=== PATIENT | female | born 1960 | race Caucasian/White ===

== ENCOUNTER 2018-01-30 00:15 | Emergency (ER) | payer SELFPAY ==
[~2018-01-30] VITALS: Ht 162.6 cm; Wt 97.5 kg
[~2018-01-30 00:15] MED LIST: EFFEXOR XR150 MG; IBUPROFEN 800800 MG PO; MOBIC7.5 MG PO; MULTIVITAMINS; NORCO 5-325 TA1 EACH PO; ULTRAM 50MG TAB50 MG PO; ZPAK PO; [UNRECOGNIZED DRUG - OTHER]
[2018-01-30 01:13] LABS: HEMATOCRIT 42.4 % (37.0-47.0); HEMOGLOBIN 14.3 gm/dL (12.0-15.0); MCH 30.7 pg (26.0-34.0); MCHC 33.8 g/dL (28.0-37.0); MCV 90.7 fL (80.0-100.0); MPV 8.2 fl. (7.2-11.1); NUCLEATED RBCS 0 /100WBC; PLATELET COUNT* 352 thou/uL (150-400); RBC 4.68 mil/uL (4.20-5.00); RDW-CV 13.5 % (10.5-14.5); WBC 17.1 thou/uL (4.0-11.0)
[2018-01-30 01:17] LABS: URINE BILIRUBIN NEGATIVE (Negative); URINE BLOOD NEGATIVE (Negative); URINE CLARITY CLEAR; URINE COLOR YELLOW; URINE GLUCOSE-RANDOM NEGATIVE (Negative); URINE KETONES TRACE (Negative); URINE LEUKOCYTES-REFLEX NEGATIVE (Negative); URINE NITRITE-REFLEX NEGATIVE (Negative); URINE PROTEIN 1+ (Negative); URINE SPECIFIC GRAVITY 1.015 (1.005-1.030); URINE UROBILINOGEN 0.2 E.U./dl (0.2-1.0)
[2018-01-30 01:31] LABS: ANION GAP 13 mmol/L (7-16); BUN 22 mg/dL (7-18); CALCIUM 9.8 mg/dL (8.5-10.1); CHLORIDE 103 mmol/L (98-107); CO2 25 mmol/L (21-32); GLUCOSE 160 mg/dL (70-99); POTASSIUM 3.6 mmol/L (3.5-5.1); SODIUM 141 mmol/L (136-145)
[2018-01-30 01:35] LABS: ALBUMIN 4.4 g/dL (3.4-5.0); ALKALINE PHOSPHATASE 161 U/L (46-116); LIPASE 155 U/L (73-393); SGOT 26 U/L (15-37); SGPT 29 U/L (30-65); TOTAL BILIRUBIN 0.5 mg/dL (<0.1-1.0); TOTAL PROTEIN 8.5 g/dL (6.4-8.2); TROPONIN-I LEVEL <0.06 ng/mL (<0.06)
[2018-01-30 02:44] LABS: ABSOLUTE LYMPHOCYTES 1.7 thou/uL (0.8-5.3); ABSOLUTE MONOCYTES 0.9 thou/uL (0.0-1.2); ABSOLUTE NEUTROPHILS 14.5 thou/uL (1.6-8.1)
[2018-01-30 02:45] LABS: GIANT PLATELETS OCCASIONAL; PLATELET ESTIMATE ADEQUATE
[2018-01-30 04:30] VITALS: BP 139/76
--- NOTE | 2018-01-30 10:14 | EKG ---
[place] [address] ELECTROCARDIOGRAM REPORT Name: ROSANNA MONTGOMERY Room: [facility]#: [id number] Admission: 01/30/18 Attend Phys: Discharge: 01/30/18 Date of : 56 Report #: [id number] THIS REPORT FOR: //name// [facility] ED Test Date: 2018-01-30 Test Time: 01:14:53 Pat Name: ROSANNA MONTGOMERY Department: Room: Gender: F Private Banker: DANISHA : 1960 Requested By: London Gonzales Order Number: [id number] MD: Nikunj Ellis Measurements Intervals [place] Rate: 67 P: 72 [place]: 176 QRS: 30 QRSD: 86 T: 120 QT: 424 QTc: 448 Interpretive Statements Sinus rhythm Consider left atrial enlargement Borderline repolarization abnormality Compared to ECG 02/19/2012 22:40:45 Atrial premature complex(es) no longer present Electronically Signed On 01-30-2018 10:13:47 CDT by Nikunj Ellis [email or web address] <ELECTRONICALLY SIGNED> By: Nikunj Ellis MD, [facility] 01/30/18 1013 0114 011 Nikunj Ellis MD, FACC /EPI
== END 2018-01-30 04:39 | disposition short-term general hospital (02) ==
LOC: M.ERS 00:15
PROVIDERS: Emergency Medicine
DX: K43.6 Other and unspecified ventral hernia with obstruction, without gangrene (principal); G47.30 Sleep apnea, unspecified; I10 Essential (primary) hypertension; Z90.711 Acquired absence of uterus with remaining cervical stump; Z88.2 Allergy status to sulfonamides

== ENCOUNTER → 2018-08-28 | Outpatient (CLI) | payer OTHER ==
[2018-08-28 14:46] LABS: ABSOLUTE BASOPHILS 0.1 thou/uL (0.0-0.2); ABSOLUTE EOSINOPHILS 0.3 thou/uL (0.0-0.7); ABSOLUTE LYMPHOCYTES 2.3 thou/uL (0.8-5.3); ABSOLUTE MONOCYTES 0.8 thou/uL (0.0-1.2); ABSOLUTE NEUTROPHILS 5.1 thou/uL (1.6-8.1); EOSINOPHILS 3.1 %; HEMATOCRIT 33.9 % (37.0-47.0); HEMOGLOBIN 10.8 gm/dL (12.0-15.0); LYMPHOCYTES 27.1 %; MCH 25.7 pg (26.0-34.0); MCHC 31.9 g/dL (28.0-37.0); MCV 80.8 fL (80.0-100.0); MONOCYTES 9.1 %; MPV 7.6 fl. (7.2-11.1); NUCLEATED RBCS 0 /100WBC; PLATELET COUNT* 363 thou/uL (150-400); POLYS 59.7 %; RDW-CV 14.9 % (10.5-14.5); WBC 8.6 thou/uL (4.0-11.0)
[2018-08-28 14:58] LABS: ALBUMIN 3.8 g/dL (3.4-5.0); CALCIUM 8.9 mg/dL (8.5-10.1); POTASSIUM 3.4 mmol/L (3.5-5.1); TOTAL BILIRUBIN 0.3 mg/dL (<0.1-1.0); TOTAL PROTEIN 7.7 g/dL (6.4-8.2)
== END ==
LOC: M.LAB 14:17
PROVIDERS: Specialist
DX: M79.10 Myalgia, unspecified site (principal)

== ENCOUNTER → 2018-11-06 | Outpatient (CLI) | payer OTHER ==
[2018-11-06 15:54] LABS: % SATURATION 31 % (20-39); IRON 134 ug/dL (50-175)
== END ==
LOC: M.LAB 14:29
PROVIDERS: Specialist
DX: D64.9 Anemia, unspecified (principal)

== ENCOUNTER → 2018-11-22 | Outpatient (CLI) | payer OTHER | LOC: M.RAD 14:42 | DX: M47.895 Other spondylosis, thoracolumbar region (principal); M43.16 Spondylolisthesis, lumbar region; M41.84 Other forms of scoliosis, thoracic region; G89.29 Other chronic pain ==

== ENCOUNTER → 2018-12-11 | Outpatient (CLI) | payer OTHER | LOC: M.RAD 15:13 | DX: M17.12 Unilateral primary osteoarthritis, left knee (principal); G89.29 Other chronic pain ==

== ENCOUNTER → 2018-12-17 | Outpatient (CLI) | payer OTHER | LOC: M.MRI 17:03 | DX: S83.412A Sprain of medial collateral ligament of left knee, initial encounter (principal); S83.242A Other tear of medial meniscus, current injury, left knee, initial encounter; F41.9 Anxiety disorder, unspecified; E78.5 Hyperlipidemia, unspecified; I10 Essential (primary) hypertension; E66.9 Obesity, unspecified; Z90.710 Acquired absence of both cervix and uterus; Z82.49 Family history of ischemic heart disease and other diseases of the circulatory system; Z83.3 Family history of diabetes mellitus; Z87.891 Personal history of nicotine dependence; Z88.1 Allergy status to other antibiotic agents; Z88.2 Allergy status to sulfonamides; X58.XXXA Exposure to other specified factors, initial encounter; Y93.89 Activity, other specified; Y92.89 Other specified places as the place of occurrence of the external cause; Y99.8 Other external cause status ==

== ENCOUNTER → 2019-02-15 | Outpatient (CLI) | payer OTHER | LOC: M.MRI 16:16 | DX: M75.101 Unspecified rotator cuff tear or rupture of right shoulder, not specified as traumatic (principal); F41.9 Anxiety disorder, unspecified; F32.9 Major depressive disorder, single episode, unspecified; Z82.49 Family history of ischemic heart disease and other diseases of the circulatory system; E78.5 Hyperlipidemia, unspecified; I10 Essential (primary) hypertension; E66.9 Obesity, unspecified; Z88.1 Allergy status to other antibiotic agents; Z88.2 Allergy status to sulfonamides; Z83.3 Family history of diabetes mellitus; Z87.891 Personal history of nicotine dependence ==

== ENCOUNTER → 2019-05-07 | Outpatient (CLI) | payer OTHER | LOC: M.RAD 11:58 | DX: R07.89 Other chest pain (principal); R06.02 Shortness of breath; R05 Cough ==

== ENCOUNTER 2019-10-04 11:25 | Emergency (ER) | payer OTHER ==
[~2019-10-04] VITALS: Ht 167.6 cm; Wt 95.3 kg
[2019-10-04] MEDS ORDERED: VISTARIL50 MG PO (11:34)
[2019-10-04] MEDS ORDERED: XYZAL5 MG PO (11:34)
[2019-10-04] MEDS ORDERED: LEXAPRO20 MG PO (11:34)
[2019-10-04] MEDS ORDERED: ZESTRIL10 MG PO (11:34)
[2019-10-04] MEDS ORDERED: ONDANSETRON ODT4 MG PO (11:35)
[2019-10-04] MEDS ORDERED: SINGULAIR 10 MG10 MG PO (11:35)
[2019-10-04] MEDS ORDERED: TRAZODONE HCL100 MG PO (11:35)
[2019-10-04] MEDS ORDERED: NASONEX17 GM NASAL (11:35)
[2019-10-04 12:21] LABS: ABSOLUTE BASOPHILS 0.1 thou/uL (0.0-0.2); ABSOLUTE EOSINOPHILS 0.1 thou/uL (0.0-0.7); ABSOLUTE LYMPHOCYTES 2.5 thou/uL (0.8-5.3); ABSOLUTE MONOCYTES 0.9 thou/uL (0.0-1.2); ABSOLUTE NEUTROPHILS 6.1 thou/uL (1.6-8.1); BASOPHILS 0.9 %; EOSINOPHILS 1.2 %; HEMATOCRIT 41.9 % (37.0-47.0); HEMOGLOBIN 14.2 gm/dL (12.0-15.0); LYMPHOCYTES 25.6 %; MCH 30.7 pg (26.0-34.0); MCHC 33.8 g/dL (28.0-37.0); MCV 90.7 fL (80.0-100.0); MPV 7.5 fl. (7.2-11.1); NUCLEATED RBCS 0 /100WBC; PLATELET COUNT* 357 thou/uL (150-400); POLYS 63.3 %; RBC 4.63 mil/uL (4.20-5.00); RDW-CV 12.9 % (10.5-14.5); WBC 9.6 thou/uL (4.0-11.0)
[2019-10-04 12:28] LABS: CALCIUM 9.9 mg/dL (8.5-10.1); POTASSIUM 3.7 mmol/L (3.5-5.1)
[2019-10-04 12:32] LABS: ALBUMIN 4.2 g/dL (3.4-5.0); TOTAL BILIRUBIN 0.7 mg/dL (<0.1-1.0)
[2019-10-04 12:36] LABS: INFLUENZA A ANTIGEN Negative (Negative); INFLUENZA B ANTIGEN Negative (Negative)
[2019-10-04] MEDS ORDERED: REGLAN 10 MG TA10 MG PO ×2 (14:13→14:14)
[2019-10-04] MEDS ORDERED: BENTYL 20 MG TA20 M1 PO ×2 (14:13→14:14)
[2019-10-04 14:44] LABS: URINE BILIRUBIN NEGATIVE (Negative); URINE BLOOD NEGATIVE (Negative); URINE CLARITY CLEAR; URINE COLOR YELLOW; URINE GLUCOSE-RANDOM NEGATIVE (Negative); URINE KETONES NEGATIVE (Negative); URINE LEUKOCYTES-REFLEX NEGATIVE (Negative); URINE NITRITE-REFLEX NEGATIVE (Negative); URINE PROTEIN TRACE (Negative); URINE SPECIFIC GRAVITY <= 1.005 (1.005-1.030); URINE UROBILINOGEN 0.2 E.U./dl (0.2-1.0)
[2019-10-04 14:50] VITALS: BP 140/80
--- NOTE | 2019-10-04 15:51 | EKG ---
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
== END 2019-10-04 14:51 | disposition home or self-care (01) ==
LOC: M.ERS 11:25
PROVIDERS: Nurse Practitioner Family
DX: K52.9 Noninfective gastroenteritis and colitis, unspecified (principal); G47.30 Sleep apnea, unspecified; I10 Essential (primary) hypertension; Z88.1 Allergy status to other antibiotic agents; Z88.2 Allergy status to sulfonamides; Z88.8 Allergy status to other drugs, medicaments and biological substances; Z90.711 Acquired absence of uterus with remaining cervical stump

== ENCOUNTER 2019-11-27 10:59 | Observation (INO) | payer OTHER ==
[~2019-11-27] VITALS: Ht 167.6 cm; Wt 101.6 kg
--- NOTE | ~2019-11-27 | EKG ---
[place] [address] ELECTROCARDIOGRAM REPORT Name: ROSANNA MONTGOMERY Room: [place] [address] ADM IN .R.#: [id number] Admission: 11/27/19 Attend Phys: Eunice joseph Sa Discharge: Date of : 56 Date of Service: 11/27/19 1351 Report #: [id number] THIS REPORT FOR: cc: Oliverio Gutierrez. Oliverio Holden. Ericka Weber MD ~ THIS REPORT FOR: //name// [facility] ED Test Date: 2019-11-27 Test Time: 13:51:31 Pat Name: ROSANNA MONTGOMERY Department: Room: [facility] Gender: F Inspector Line: BLANCO : 1960 Requested By: Loki Harmon Order Number: [id number] MD: Measurements Intervals [place] Rate: 72 P: 66 [place]: 173 QRS: 25 QRSD: 85 T: 90 QT: 406 QTc: 445 Interpretive Statements Sinus rhythm Borderline repolarization abnormality Compared to ECG 10/04/2019 12:21:41 Possible ischemia no longer present [email or web address] By: [id number] 135 Epiphany Epiphany, /ANA MARÍA
[~2019-11-27 10:59] MED LIST changes: +BENTYL 20 MG TA20 M1 PO; +LEXAPRO20 MG PO; +NASONEX17 GM NASAL; +ONDANSETRON ODT4 MG PO; +REGLAN 10 MG TA10 MG PO; +SINGULAIR 10 MG10 MG PO; +TRAZODONE HCL100 MG PO; +VISTARIL50 MG PO; +XYZAL5 MG PO; +ZESTRIL10 MG PO
[2019-11-27 11:05] VITALS: BP 149/72
[2019-11-27 11:41] LABS: INFLUENZA A ANTIGEN Negative (Negative); INFLUENZA B ANTIGEN Negative (Negative)
[2019-11-27 11:52] LABS: ABSOLUTE BASOPHILS 0.1 thou/uL (0.0-0.2); ABSOLUTE EOSINOPHILS 0.1 thou/uL (0.0-0.7); ABSOLUTE LYMPHOCYTES 2.4 thou/uL (0.8-5.3); ABSOLUTE MONOCYTES 0.7 thou/uL (0.0-1.2); ABSOLUTE NEUTROPHILS 9.2 thou/uL (1.6-8.1); BASOPHILS 0.5 %; EOSINOPHILS 0.5 %; HEMATOCRIT 39.5 % (37.0-47.0); HEMOGLOBIN 13.6 gm/dL (12.0-15.0); MCH 31.3 pg (26.0-34.0); MCHC 34.3 g/dL (28.0-37.0); MONOCYTES 5.7 %; NUCLEATED RBCS 0 /100WBC; PLATELET COUNT* 407 thou/uL (150-400); POLYS 74.3 %; RBC 4.34 mil/uL (4.20-5.00); RDW-CV 13.5 % (10.5-14.5); WBC 12.4 thou/uL (4.0-11.0)
[2019-11-27 12:00] LABS: CALCIUM 8.9 mg/dL (8.5-10.1); CREATININE 0.9 mg/dL (0.6-1.3); POTASSIUM 3.2 mmol/L (3.5-5.1)
[2019-11-27 12:05] LABS: ALBUMIN 3.8 g/dL (3.4-5.0); TOTAL BILIRUBIN 0.6 mg/dL (<0.1-1.0); TOTAL PROTEIN 7.3 g/dL (6.4-8.2)
[2019-11-27 14:57] VITALS: BP 163/76
[2019-11-27 16:00] VITALS: BP 135/71
[2019-11-27 16:55] VITALS: BP 150/80
[2019-11-27] MEDS ORDERED: NEURONTIN 300M300 M2 PO (19:24)
[2019-11-27] MEDS ORDERED: HYDROXYZINE PAM50 MG PO (19:27)
[2019-11-27] MEDS ORDERED: KEFLEX500 M2 PO (19:33)
[2019-11-27] MEDS ORDERED: PREDNISONE 10 M10 MG PO (19:35)
[2019-11-27 21:00] VITALS: BP 168/61
[2019-11-28 03:48] LABS: ABSOLUTE LYMPHOCYTES 1.6 thou/uL (0.8-5.3); ABSOLUTE MONOCYTES 1.1 thou/uL (0.0-1.2); ABSOLUTE NEUTROPHILS 8.9 thou/uL (1.6-8.1); BASOPHILS 0.1 %; HEMATOCRIT 37.8 % (37.0-47.0); HEMOGLOBIN 12.4 gm/dL (12.0-15.0); MCH 30.9 pg (26.0-34.0); MCV 93.6 fL (80.0-100.0); MONOCYTES 9.5 %; MPV 7.4 fl. (7.2-11.1); NUCLEATED RBCS 0 /100WBC; PLATELET COUNT* 405 thou/uL (150-400); POLYS 76.4 %; RBC 4.03 mil/uL (4.20-5.00); RDW-CV 13.9 % (10.5-14.5); WBC 11.6 thou/uL (4.0-11.0)
[2019-11-28 04:03] LABS: CALCIUM 8.4 mg/dL (8.5-10.1); CREATININE 0.8 mg/dL (0.6-1.3); POTASSIUM 3.8 mmol/L (3.5-5.1)
[2019-11-28 07:35] VITALS: BP 167/89
[2019-11-28] MEDS ORDERED: CEFDINIR300 MG PO (10:51)
[2019-11-28] MEDS ORDERED: BUTALB-APAP-CA1 EACH PO (10:51)
[2019-11-28] MEDS ORDERED: ALLERGY RELIEF4 MG PO (10:51)
[2019-11-28] MEDS ORDERED: ATIVAN0.5 M1 PO (10:55)
[2019-11-28 12:03] VITALS: BP 167/89
== END 2019-11-28 13:55 | disposition home or self-care (01) ==
LOC: M.ERS 10:59 → M.3W 12:32 → M.TBA-ER 12:32 → M.3W 12:32
PROVIDERS: Family Medicine; ADMIT Family Medicine
DX: R53.1 Weakness (principal); F41.8 Other specified anxiety disorders; B34.9 Viral infection, unspecified; H66.91 Otitis media, unspecified, right ear; E86.0 Dehydration; I10 Essential (primary) hypertension; J30.9 Allergic rhinitis, unspecified

== ENCOUNTER 2019-12-10 11:48 | Emergency (ER) | payer OTHER ==
[~2019-12-10] VITALS: Ht 167.6 cm; Wt 90.7 kg
[~2019-12-10 11:48] MED LIST changes: +ALLERGY RELIEF4 MG PO; +ATIVAN0.5 M1 PO; +BUTALB-APAP-CA1 EACH PO; +CEFDINIR300 MG PO; +HYDROXYZINE PAM50 MG PO; +KEFLEX500 M2 PO; +NEURONTIN 300M300 M2 PO; +PREDNISONE 10 M10 MG PO
[2019-12-10 13:01] LABS: ABSOLUTE BASOPHILS 0.1 thou/uL (0.0-0.2); ABSOLUTE EOSINOPHILS 0.2 thou/uL (0.0-0.7); ABSOLUTE LYMPHOCYTES 1.8 thou/uL (0.8-5.3); ABSOLUTE MONOCYTES 0.9 thou/uL (0.0-1.2); ABSOLUTE NEUTROPHILS 7.2 thou/uL (1.6-8.1); BASOPHILS 0.9 %; HEMATOCRIT 39.2 % (37.0-47.0); HEMOGLOBIN 13.5 gm/dL (12.0-15.0); LYMPHOCYTES 17.2 %; MCH 31.7 pg (26.0-34.0); MCHC 34.5 g/dL (28.0-37.0); MONOCYTES 8.8 %; MPV 7.5 fl. (7.2-11.1); NUCLEATED RBCS 0 /100WBC; PLATELET COUNT* 332 thou/uL (150-400); POLYS 71.1 %; RBC 4.26 mil/uL (4.20-5.00); WBC 10.2 thou/uL (4.0-11.0)
[2019-12-10 13:10] LABS: CALCIUM 9.2 mg/dL (8.5-10.1); CREATININE 0.8 mg/dL (0.6-1.3)
[2019-12-10 13:14] LABS: ALBUMIN 3.8 g/dL (3.4-5.0); TOTAL BILIRUBIN 0.4 mg/dL (<0.1-1.0); TOTAL PROTEIN 7.8 g/dL (6.4-8.2)
[2019-12-10 13:28] LABS: URINE BILIRUBIN NEGATIVE (Negative); URINE BLOOD NEGATIVE (Negative); URINE CLARITY CLEAR; URINE COLOR YELLOW; URINE GLUCOSE-RANDOM NEGATIVE (Negative); URINE KETONES NEGATIVE (Negative); URINE LEUKOCYTES-REFLEX NEGATIVE (Negative); URINE NITRITE-REFLEX NEGATIVE (Negative); URINE PROTEIN NEGATIVE (Negative); URINE UROBILINOGEN 0.2 E.U./dl (0.2-1.0)
[2019-12-10 13:49] LABS: ACETAMINOPHEN 2 ug/mL (10-30); SALICYLATE < 2.8 mg/dL (2.8-20.0)
[2019-12-10 15:57] VITALS: BP 165/89
== END 2019-12-10 15:58 | disposition home or self-care (01) ==
LOC: M.ERS 11:48
PROVIDERS: Personal Emergency Response Attendant
DX: E86.0 Dehydration (principal); R53.83 Other fatigue; I10 Essential (primary) hypertension; G47.30 Sleep apnea, unspecified; Z90.711 Acquired absence of uterus with remaining cervical stump; Z98.890 Other specified postprocedural states; Z88.1 Allergy status to other antibiotic agents; Z88.2 Allergy status to sulfonamides

== ENCOUNTER → 2019-12-17 | Outpatient (CLI) | payer OTHER ==
[2019-12-17 17:30] LABS: ABSOLUTE LYMPHOCYTES 1.7 thou/uL (0.8-5.3); ABSOLUTE MONOCYTES 0.6 thou/uL (0.0-1.2); ABSOLUTE NEUTROPHILS 7.8 thou/uL (1.6-8.1); BASOPHILS 0.4 %; HEMATOCRIT 39.3 % (37.0-47.0); HEMOGLOBIN 13.6 gm/dL (12.0-15.0); LYMPHOCYTES 16.7 %; MCH 31.6 pg (26.0-34.0); MCHC 34.5 g/dL (28.0-37.0); MCV 91.7 fL (80.0-100.0); MONOCYTES 5.5 %; MPV 7.1 fl. (7.2-11.1); NUCLEATED RBCS 0 /100WBC; PLATELET COUNT* 463 thou/uL (150-400); POLYS 77.4 %; RBC 4.29 mil/uL (4.20-5.00); RDW-CV 14.1 % (10.5-14.5); WBC 10.1 thou/uL (4.0-11.0)
[2019-12-17 17:45] LABS: ALKALINE PHOSPHATASE 129 U/L (46-116); ANION GAP 10 mmol/L (7-16); CALCIUM 9.4 mg/dL (8.5-10.1); CHLORIDE 102 mmol/L (98-107); CHOLESTEROL 286 mg/dL (<200); CO2 27 mmol/L (21-32); CREATININE 0.7 mg/dL (0.6-1.3); GLUCOSE 90 mg/dL (70-99); HDL CHOLESTEROL 23 mg/dL (>40); LDL CHOLESTEROL 224 mg/dL (<100); POTASSIUM 4.3 mmol/L (3.5-5.1); SGOT 17 U/L (15-37); SGPT 28 U/L (30-65); SODIUM 139 mmol/L (136-145); TC:HDL 12.4 Ratio (Not establshd); TOTAL BILIRUBIN 0.3 mg/dL (<0.1-1.0); TRIGLYCERIDE 199 mg/dL (<150); VLDL 40 mg/dL (<40)
[2019-12-17 18:05] LABS: SERUM ASSESSMENT Clear
[2019-12-17 18:08] LABS: BUN 18 mg/dL (7-18)
[2019-12-19 16:09] LABS: EBV VCA IgM <36.0 U/mL (0.0-35.9)
== END ==
LOC: M.LAB 16:54
PROVIDERS: Nurse Practitioner Family
DX: R50.9 Fever, unspecified (principal); R52 Pain, unspecified

== ENCOUNTER → 2020-01-16 | Outpatient (CLI) | payer OTHER ==
[~2020-01-16] MED LIST changes: +BUTRANS1 EAC4 INTRADERM; +ESCITALOPRAM; +LIPITOR10 MG PO; +TRAMADOL 50 MG50 MG PO; +VOLTAREN GEL 1100 G1 TOP
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
== END ==
LOC: M.PC 02:45
DX: M25.562 Pain in left knee (principal); E66.9 Obesity, unspecified; I10 Essential (primary) hypertension; E78.5 Hyperlipidemia, unspecified; F41.8 Other specified anxiety disorders; Z88.2 Allergy status to sulfonamides; Z79.84 Long term (current) use of oral hypoglycemic drugs; Z88.1 Allergy status to other antibiotic agents; Z79.899 Other long term (current) drug therapy

== ENCOUNTER → 2020-03-10 | Outpatient (CLI) | payer OTHER ==
[~2020-03-10] MED LIST changes: +HYDROCODON-ACE1 EAC7 PO; +MOBIC15 MG PO
--- NOTE | 2020-03-19 14:15 | PAINCON ---
[address] [address] PAIN MANAGEMENT CONSULTATION Name: ROSANNA MONTGOMERY Room: [facility]#: [id number] Admission: 03/10/20 Attend Phys: Eagle Collins MD Discharge: Date of : 56 Report #: [id number] THIS REPORT FOR: //name// cc: Gena Castillo NP, Elizabeth NP ~ THIS REPORT FOR: //name// CC: Gena Collins DATE OF SERVICE: 03/10/2020 CHIEF COMPLAINT: Knee pain and all over muscle pain. HISTORY: The patient is a 59-year-old female who has been seen in the Pain Clinic. She has chronic pain. She works at [employer]. She is contemplating a left knee replacement. She finds that her muscles are very painful. After work, she has difficulty lying down. Sleep is problematic. She uses a cane while at home. She rates her pain as an 8/10. The left knee continues to be problematic because of scww-yf-srao involvement. She has been treated for mononucleosis. She notes that the pain is more problematic with activity, walking, sitting, standing, climbing stairs, lifting as well as with bending. Pain improves with rest. ALLERGIES: SULFA, AMOXICILLIN. CURRENT MEDICATIONS: Escitalopr?m 20 mg, tramadol 5 mg b.i.d., gabapentin 600 mg 2 tablets b.i.d., trazodone 100 mg at bedtime, Montelukast 10 mg, hydroxyzine, lisinopril 10 mg, and Lipitor 10 mg. PAIN CLINIC ASSESSMENT/PQRS: 1. The patient does have some osteoarthritic changes involving her right shoulder. She has esxv-ng-ddku pain. It involves her left knee. The patient has had right rotator cuff pain. She is not being treated for rheumatoid arthritis. 2. Height 5 feet 6 inches, weight 208 pounds, BMI 33.4. 3. Vital signs: Blood pressure 151/92, heart rate 85, respiratory rate 16, room air saturation is 94%, temperature 98.5. 4. Pain intensity, 10. 5. Fall risk. The patient has not fallen in the last 3 months. 6. Blood thinner. The patient is not on a blood thinning medication. 7. Hypertension. The patient is being treated for hypertension. 8. Opioids greater than 6 weeks. The patient receives medication from the Pain Clinic. 9. Risk assessment tool, [place] [address] PAIN MANAGEMENT CONSULTATION Name: ROSANNA MONTGOMERY Room: [facility]#: [id number] Admission: 03/10/20 Attend Phys: Eagle Collins MD Discharge: Date of : 56 Report #: [id number] 10. Functional assessment tool, reviewed. 11. Recreational drug use. The patient denies. 12. Tobacco: The patient denies. The patient has not smoked in the last 6 years. 13. Alcohol. The patient denies use of alcoholic beverages. PHYSICAL EXAMINATION: GENERAL: The patient is a well-developed, well-nourished white female. Appears her stated age. She is alert and oriented x 3. Her affect is appropriate. Speech is fluent. HEENT: Normocephalic, atraumatic. Extraocular eye muscles intact. Sclerae nonicteric. Mucous membranes are moist. NECK: The patient is without significant JVD. The patient complains of some pain and discomfort in her right shoulder. Has some limitation in movement of her right shoulder and arm. HEART: Regular rate. ABDOMEN: Nontender. MUSCULOSKELETAL: Without significant scoliosis, kyphosis or lordosis. The patient has discomfort in the low back area with complaints of pain in her knee. The patient has some discomfort in her foot involving her toes. IMPRESSION: Chronic pain as a result of new onset mononucleosis. The patient has noted some lethargy, myalgias and has had discomfort for a number of months. The patient is unable to take nonsteroidal anti-inflammatory medications. RECOMMENDATIONS: We discussed treatment option with the patient. Risks and benefits of opioid medications were again discussed. The patient is aware that these medications can become less effective as time goes on. She will continue with the Voltaren gel, which she applies 4 times daily to her knee area. She will continue with gabapentin b.i.d. to t.i.d. She will continue with meloxicam and notes its effect on her GI tract. The patient feels that her pain is improved, 50-65% with her current medications. A script for her medications have been sent to her pharmacy. These include medications of meloxicam, hydrocodone, Voltaren gel. She will call us if she has any concerns. We would like to thank you for letting us participate in her care. We hope she continues to improve. <ELECTRONICALLY SIGNED> By: Eagle oCllins MD 03/19/20 1415 1606 0118N. Olegario Collins MD /nt
== END ==
LOC: M.PC 05:00
DX: M25.562 Pain in left knee (principal); M79.18 Myalgia, other site; I10 Essential (primary) hypertension; F10.10 Alcohol abuse, uncomplicated; F11.20 Opioid dependence, uncomplicated; Z87.891 Personal history of nicotine dependence; Z88.2 Allergy status to sulfonamides; Z88.8 Allergy status to other drugs, medicaments and biological substances; Z96.652 Presence of left artificial knee joint; Z79.899 Other long term (current) drug therapy

== ENCOUNTER → 2020-04-07 | Outpatient (CLI) | payer OTHER ==
--- NOTE | 2020-04-08 08:41 | PAINCON ---
[address] [address] PAIN MANAGEMENT CONSULTATION Name: PHU MONTGOMERYKylah Gonzales Room: [facility]#: [id number] Admission: 04/07/20 Attend Phys: Eagle Collins MD Discharge: Date of : 56 Report #: [id number] THIS REPORT FOR: //name// cc: Gena Castillo NP, Elizabeth NP ~ THIS REPORT FOR: //name// CC: Gena Collins DATE OF SERVICE: 04/07/2020 CHIEF COMPLAINT: Continued left knee pain and muscle pain with arthritis. HISTORY OF PRESENT ILLNESS: The patient is a 59-year-old female who has been followed in the pain clinic because of chronic pain. She worked at [employer]. She continues to have pain and is contemplating on the left knee replacement. Feels that her muscles are very sore and painful. She feels that she may have had COVID-19. She states that she had quite a number of the symptoms that were reported on TV. Notes that her pain is a 7/10. She has returned today for renewal of her medications. Walking, sitting, standing, climbing stairs, lifting and bending are problematic. The patient feels that her pain is about 50% improved with her current medical regimen. ALLERGIES: SULFA, AMOXICILLIN. CURRENT MEDICATIONS: Escitalopram 20 mg, tramadol 5 mg b.i.d., gabapentin 600 mg 2 tablets b.i.d., trazodone 100 mg at bedtime, montelukast 10 mg, hydroxyzine, lisinopril 10 mg, Lipitor 10 mg, Voltaren gel to the affected surface, hydrocodone 5/325 1 p.o. b.i.d. to t.i.d., Zoloft, meloxicam. PAIN CLINIC ASSESSMENT AND PQRS: 1. The patient has some osteoarthritic changes involving her right shoulder. Has xuej-lu-egsc pain involving her left knee. The patient also has a right rotator cuff pain. She is not being treated for rheumatoid arthritis. 2. Height 5 feet 6 inches, weight 203 pounds, BMI is 32. 3. Vital signs: Blood pressure 141/80, heart rate 86, respiratory rate 16, room air saturation 93%, temperature 97.9. 4. Pain intensity, 7/10. 5. Fall risk. The patient has not fallen in the last 3 months. 6. Blood thinner. The patient is not on a blood thinning medication. 7. Hypertension. The patient is being treated for hypertension. 8. Opioids greater than 6 weeks. The patient received medication from [place] [address] PAIN MANAGEMENT CONSULTATION Name: ROSANNA MONTGOMERY Room: [facility]#: [id number] Admission: 04/07/20 Attend Phys: Eagle Collins MD Discharge: Date of : 56 Report #: [id number] 9. Risk assessment tool, low for opioid use. 10. Functional assessment tool, reviewed. 11. Recreational drug use. The patient denies. 12. Tobacco. The patient denies. She has not smoked in the last 6 years. 13. Alcohol. The patient denies use of alcoholic beverages. PHYSICAL EXAMINATION: GENERAL: The patient is a well-developed, well-nourished, white female. Appears her stated age. She is alert and oriented x 3. Her affect is appropriate. Speech is fluent. HEENT: Normocephalic, atraumatic. Extraocular eye muscles intact. Sclerae nonicteric. Mucous membranes are moist. NECK: Without adenopathy or JVD. The patient complains of some pain and discomfort in her right shoulder. He has some limitation of movement in her right shoulder and arm. HEART: Regular. ABDOMEN: Nontender. MUSCULOSKELETAL: The patient without significant scoliosis, kyphosis or lordosis. The patient does have some pain in the lower portion of her back and pain in her knee. Has some pain involving her toes. IMPRESSION: 1. Chronic pain with new onset of mononucleosis for the second time. 2. History of lethargy and myalgias for a number of months. 3. The patient feels that she has had COVID-19, has been off work for 4 months. RECOMMENDATIONS: We discussed treatment options. At this juncture, we will continue with her medications. She will continue with hydrocodone 5/325 1 p.o. b.i.d. to t.i.d., a total of 75 tablets have been provided. The patient will call us if she has any concerns. Hopefully, she will continue to improve. She did feel that she had COVID symptomatology. She has not been tested for the antibody. She feels that she has had that problem. States it was worse sickness that she has had in her life at this juncture. We would like to thank you for letting us participate in her care. We hope she continues to improve. <ELECTRONICALLY SIGNED> By: Eagle Collins MD 04/08/20 0841 1547 2350N. Olegario Collins MD /PMT
== END ==
LOC: M.PC 03:54
PROVIDERS: ATTEND Anesthesiology Pain Medicine
DX: M25.561 Pain in right knee (principal); M19.90 Unspecified osteoarthritis, unspecified site; G89.29 Other chronic pain; Z79.899 Other long term (current) drug therapy

== ENCOUNTER → 2020-05-07 | Outpatient (CLI) | payer OTHER ==
--- NOTE | 2020-05-15 09:02 | PAINCON ---
[address] [address] PAIN MANAGEMENT CONSULTATION Name: ULISESROSANNA R Room: [facility].#: [id number] Admission: 05/07/20 Attend Phys: Eagle Collins MD Discharge: Date of : 56 Report #: [id number] THIS REPORT FOR: //name// cc: Gena Castillo NP, Elizabeth NP ~ THIS REPORT FOR: //name// CC: Dr. Gena Collins DATE OF SERVICE: 05/07/2020 CHIEF COMPLAINT: Left knee and muscle pain. HISTORY: The patient is a 59-year-old female who has been followed in the pain clinic because of chronic pain. She worked at [employer] She has pain involving her left knee. She is contemplating knee replacement. She has been having a lot of pain due to being busy at work. She has been having flare-ups in her discomfort. She rates her pain as a 7-8/10. She has continued to use hydrocodone 5 mg as tolerated. She also is using meloxicam, tramadol, and Voltaren gel. With all these medications she feels her pain is about 50% better. It is exacerbated with walking, sitting, standing, climbing stairs, lifting, and bending. She has returned today for renewal of her medications. ALLERGIES: SULFA AND AMOXICILLIN. CURRENT MEDICATIONS: Escitalopram 20 mg, tramadol 50 b.i.d., gabapentin 600 mg 2 tablets b.i.d., trazodone 100 mg at bedtime, montelukast 10 mg, hydroxyzine, lisinopril 10 mg, Lipitor 10 mg, Voltaren gel to the affected area 4 times daily, hydrocodone 5/325 one p.o. b.i.d. to t.i.d., Zoloft, and meloxicam. PAIN CLINIC ASSESSMENT/PQRS: 1. The patient has some osteoarthritic changes involving her right shoulder. She has yrvz-ge-sjxs pain involving her left knee. She also has some right rotator cuff pain. She is not being treated for rheumatoid arthritis. 2. Height 5 feet 6 inches, weight 206 pounds, BMI is 33. 3. Vital signs: Blood pressure is 143/90, heart rate 83, respiratory rate 16, room air saturation 95%, temperature 96.6. 4. Pain intensity 7-8/10. 5. Fall history: The patient has not fallen in the last 3 months. 6. Blood thinner. The patient is not on a blood thinning medication. 7. Hypertension. The patient is being treated for hypertension. 8. Opioids greater than 6 weeks. The patient receives medication from [place] [address] PAIN MANAGEMENT CONSULTATION Name: ROSANNA MONTGOMERY Room: [facility]#: [id number] Admission: 05/07/20 Attend Phys: Eagle Collins MD Discharge: Date of : 56 Report #: [id number] 9. Risk assessment tool, low for opioid use. 10. Functional assessment tool, reviewed. 11. Recreational drug use. The patient denies. 12. Tobacco: The patient has not smoked in the last 6 years. 13. Alcohol. The patient denies use of alcoholic beverages. PHYSICAL EXAMINATION: GENERAL: The patient is a well-developed, well-nourished white female. Appears her stated age. She is alert and oriented x 3. Her affect is appropriate. Speech is fluent. HEENT: Normocephalic, atraumatic. Extraocular eye muscles intact. Sclerae nonicteric. Mucous membranes are moist. The patient is wearing a mask. NECK: Without adenopathy or JVD. The patient does complain of some pain and discomfort in her right shoulder. Has some limited movement in her right shoulder. HEART: Regular rate. ABDOMEN: Nontender. LUNGS: Clear to auscultation. MUSCULOSKELETAL: Without significant scoliosis, kyphosis, or lordosis. The patient has some pain and discomfort in lower back and pain in the left knee. Notes that some pain radiates down and involves her toes. IMPRESSION: 1. Chronic pain with new onset of mononucleosis for the second time. 2. History of lethargy and myalgias for a number of months. 3. The patient feels that she has had COVID-19. She was off work for a while. RECOMMENDATIONS: We discussed treatment options with the patient. At this juncture, we will continue with her medications. A script for her medications has been renewed. She will continue with tramadol 50 mg 2 tablets p.o. q.i.d. She will also continue with hydrocodone 5/325 one p.o. b.i.d. to t.i.d., a total of 75 tablets have been provided. The patient will continue with her gabapentin medication. She will call us if she has any concerns. She is aware that opioid medications can become less effective as time goes on. We discussed the addictive nature of opioids. She does not show any signs of addiction. We will continue with her medications. A script has been provided. She will call us if she has any concerns. <ELECTRONICALLY SIGNED> By: Eagle Collins MD 05/15/20 0902 1312 0149N. Olegario Collins MD /[facility]
== END ==
LOC: M.PC 04:05
PROVIDERS: ATTEND Anesthesiology Pain Medicine
DX: M25.562 Pain in left knee (principal); M79.10 Myalgia, unspecified site; G89.29 Other chronic pain; F11.20 Opioid dependence, uncomplicated; Z88.8 Allergy status to other drugs, medicaments and biological substances; Z79.899 Other long term (current) drug therapy

== ENCOUNTER → 2020-06-09 | Outpatient (CLI) | payer OTHER ==
--- NOTE | ~2020-06-09 | PAINCON ---
[address] [address] PAIN MANAGEMENT CONSULTATION Name: ULISESROSANNA R [id number] Admission: 06/09/20 Attend Phys: Eagle Collins MD Discharge: Date of : 56 Report #: [id number] THIS REPORT FOR: //name// cc: Gena Castillo NP, Elizabeth NP ~ THIS REPORT FOR: //name// CC: VERONICA Collins DATE OF SERVICE: 06/09/2020 CHIEF COMPLAINT: Continued left knee pain. HISTORY: The patient is a 59-year-old female who has been followed in the pain clinic. As you may recall, she has had some pain in her knee. She has had some problem in her left knee as well as the right knee. She has noticed an increase pain and discomfort in the right knee. She did work this weekend. As a result of prolonged working, she noticed an increase in her pain and discomfort. She rates the pain as a 7/10 on the left side. She has found meloxicam helpful. She also uses hydrocodone to help make the pain more bearable. She notes that walking, sitting, standing, climbing stairs, bending, and lifting are problematic. She is walking with an antalgic gait because of the pain and discomfort. Has noted benefit from these medications. She is having no complications from the meloxicam on her GI tract. ALLERGIES: SULFA AND AMOXICILLIN. CURRENT MEDICATIONS: Escitalopram 20 mg, tramadol 50 mg b.i.d., gabapentin 600 mg 2 tablets b.i.d., trazodone 100 mg at bedtime, montelukast 100 mg, hydroxyzine, lisinopril 10 mg, Lipitor 10 mg, Voltaren gel to the affected area 4 times daily, hydrocodone 5/325 one p.o. b.i.d. to t.i.d., Zofran, Zoloft, and meloxicam. PAIN CLINIC ASSESSMENT/PQRS: 1. The patient has some osteoarthritic changes involving her right shoulder. Has umex-dj-qufe involvement in her left knee. She also has some right rotator cuff pain. The patient is not being treated for rheumatoid arthritis. 2. Height 5 feet 6 inches, weight 206 pounds, BMI is 33. 3. Vital Signs: Blood pressure 136/66, heart rate 87, respiratory rate 16, room air saturation 94%, temperature 96.1. 4. Pain intensity 7/10. 5. Fall history: The patient has not fallen in the last 3 months. 6. Blood thinner. The patient is not on a blood thinning medication. 7. Hypertension. The patient is [place] [address] PAIN MANAGEMENT CONSULTATION Name: PHU MONTGOMERYKylah Gonzales Room: [facility]#: [id number] Admission: 06/09/20 Attend Phys: Eagle Collins MD Discharge: Date of : 56 Report #: [id number] 8. Opioids greater than 6 weeks. The patient receives medication from [facility]. 9. Risk assessment tool, low for opioid use. 10. Functional assessment tool, reviewed. 11. Recreational drug use. The patient denies. 12. Tobacco: The patient has not smoked in the last 6 years. 13. Alcohol: The patient denies use of alcoholic beverages. PHYSICAL EXAMINATION: GENERAL: The patient is a well-developed, well-nourished white female. Appears her stated age. She is alert and oriented x 3. Her affect is appropriate. Speech is fluent. HEENT: Normocephalic, atraumatic. Extraocular eye muscles intact. Sclerae nonicteric. Mucous membranes are moist. The patient is wearing face covering. NECK: Without adenopathy or JVD. The patient complains of some pain and discomfort in her right shoulder. Has some limited movement in her right shoulder. HEART: Regular rate. ABDOMEN: Nontender. LUNGS: Clear to auscultation. MUSCULOSKELETAL: Without significant scoliosis, kyphosis, or lordosis. The patient has pain and discomfort in the left knee. Has a wrap around her knee on the left side. IMPRESSION: 1. Chronic pain with history of mononucleosis. 2. History of lethargy and myalgias for a number of months. 3. The patient feels that she has had COVID-19. She was off work for some period of time. 4. Left knee pain. RECOMMENDATION: We will continue with the patient's current medical regimen. A script for hydrocodone 5/325 one p.o. t.i.d., total of 75 tablets have been dispensed. The patient will also continue with tramadol 2 tablets p.o. q.i.d. The patient will also continue with the gabapentin medication. She will use Vistaril 25 mg as needed for anxiety. We would like to thank you for letting us participate in her care. We hope she continues to improve. The patient is aware that opioid medications can become less effective over time because of development of tolerance. She has not shown any signs of addiction. By: [id number]. MD DOC Rodriguez
== END ==
LOC: M.PC 10:40
PROVIDERS: ATTEND Anesthesiology Pain Medicine
DX: G89.29 Other chronic pain (principal); M25.562 Pain in left knee; M79.10 Myalgia, unspecified site

== ENCOUNTER → 2020-07-09 | Outpatient (CLI) | payer OTHER ==
--- NOTE | 2020-07-21 13:31 | PAINCON ---
[address] [address] PAIN MANAGEMENT CONSULTATION Name: ROSANNA MONTGOMERY Janet Room: [facility]#: [id number] Admission: 07/09/20 Attend Phys: Eagle Collins MD Discharge: Date of : 56 Report #: [id number] THIS REPORT FOR: //name// cc: Gena Castillo NP, Elizabeth NP ~ THIS REPORT FOR: //name// CC: Gena Collins DATE OF SERVICE: 07/09/2020 CHIEF COMPLAINT: Right shoulder pain, left knee pain and hip pain. HISTORY: The patient is a 60-year-old female, who has been followed in the Pain Clinic. She has chronic pain involving her knee. It involves both the left and the right knee. She does work. Prolonged standing exacerbates the pain in her left knee. She has found that hydrocodone as well as her meloxicam have been beneficial. She rates her pain as a 7/10. She has used Voltaren gel that is helpful as well. With her medications, her pain is about 75% improved. Activities such as walking, sitting, standing, climbing, bending, and lifting exacerbate the discomfort as well. She uses her medications. Rest improves her level of comfort. She has returned today for renewal of her medications. ALLERGIES: SULFA, AMOXICILLIN. CURRENT MEDICATIONS: Escitalopram 20 mg, tramadol 50 mg b.i.d., gabapentin 600 mg 2 tablets b.i.d., trazodone 100 mg at bedtime, montelukast 100 mg, hydroxyzine, lisinopril 10 mg, Lipitor 10 mg, Voltaren gel to affected area 4 times daily, hydrocodone 5/325 one p.o. b.i.d. to t.i.d., Zofran, Zoloft, meloxicam. PAIN CLINIC ASSESSMENT AND PQRS: 1. The patient has some osteoarthritic changes involving her right shoulder. She has tsvm-kf-fsxk involving her left knee. She has pain and discomfort in the right rotator cuff area. The patient is not being treated for rheumatoid arthritis. 2. Height 5 feet 6 inches, weight 210 pounds, BMI 34. 3. Vital Signs: Blood pressure 146/97, heart rate 82, respiratory rate 16, room air saturation 92%, temperature 98.7. 4. Pain intensity: 7/10. 5. Fall history: The patient has not fallen in the last 3 months. 6. Blood thinner: The patient is not on a blood thinning medication. 7. Hypertension: The patient is being treated for hypertension. 8. Opioids: The [facility]. 9. Risk assessment tool: Low [place] [address] PAIN MANAGEMENT CONSULTATION Name: ULISESROSANNA R Room: [facility]#: [id number] Admission: 07/09/20 Attend Phys: Eagle Collins MD Discharge: Date of : 56 Report #: [id number] 10. Functional assessment tool: Reviewed. 11. Recreational drug use: The patient denies. 12. Tobacco: The patient has not smoked in the last 6 years. 13. Alcohol: The patient denies use of alcoholic beverages. PHYSICAL EXAMINATION: GENERAL: The patient is a well-developed, well-nourished, white female. Appears her stated age. She is alert and oriented x 3. Her affect is appropriate. Speech is fluent. HEENT: Normocephalic, atraumatic. Extraocular eye muscles intact. Sclerae nonicteric. Mucous membranes are moist. The patient is wearing facial covering. NECK: Without adenopathy or JVD. The patient has pain and discomfort in her right shoulder. She has some limited motion in the right shoulder. HEART: Regular rate. ABDOMEN: Nontender. LUNGS: Clear to auscultation. MUSCULOSKELETAL: Without significant scoliosis, kyphosis or lordosis. The patient does complain of pain and discomfort in the left knee and has a wrap around her knee on the left side. IMPRESSION: 1. Chronic pain with history of mononucleosis. 2. History of lethargy and myalgias for a number of months. 3. The patient is status post COVID-19 infection, was off work for a period of time. 4. Left knee chronic pain, qfht-kz-hycd. RECOMMENDATIONS: We discussed treatment options with the patient. At this juncture, we will continue with her medications. A script for hydrocodone 5/325 one p.o. t.i.d. has been provided. The patient will also continue with meloxicam 15 mg b.i.d. She will monitor GI tract. Nonsteroidal anti-inflammatory medications can cause GI upset. The patient is aware that opioid medications can become less effective as time goes on because of development of tolerance. We have discussed the possibility of drug dependency, some patients develop this as a result of use of opioids. The patient does not show any signs of opioid problems. We will continue with her medications. We would like to thank you for letting us participate in her care. We hope she continues to improve. <ELECTRONICALLY SIGNED> By: Eagle Collins MD 07/21/20 1331 [id number]. Olegario Collins MD /buster
== END ==
LOC: M.PC 10:50
PROVIDERS: ATTEND Anesthesiology Pain Medicine
DX: G89.29 Other chronic pain (principal); M25.511 Pain in right shoulder; M25.562 Pain in left knee; M25.552 Pain in left hip

== ENCOUNTER → 2020-08-04 | Outpatient (CLI) | payer OTHER ==
--- NOTE | 2020-08-19 15:45 | PAINCON ---
[address] [address] PAIN MANAGEMENT CONSULTATION Name: ROSANNA MONTGOMERY Janet Room: [facility]#: [id number] Admission: 08/04/20 Attend Phys: Eagle Collins MD Discharge: Date of : 56 Report #: [id number] THIS REPORT FOR: //name// cc: Gena Castillo NP, Elizabeth NP ~ CC: Gena Collins DATE OF SERVICE: 08/04/2020 PRIMARY CARE PHYSICIAN: Gena Castillo NP CHIEF COMPLAINT: Continued left knee, shoulder and back pain. HISTORY: The patient is a 60-year-old female who has been followed in the pain clinic. She continues to have pain involving her left knee. She also has right shoulder pain. She is having pain in her back. She does stand for some prolonged periods of time at work. She notes that certain movements can become more problematic. She feels that her workload has increased at her job. She feels that the hydrocodone, meloxicam and gabapentin are helpful. They enable her to stay less painful. Notes that activities such as walking, sitting, standing, climbing stairs, bending and lifting are problematic. Pain does improve with rest. She has returned today for renewal of her medications. ALLERGIES: SULFA, AMOXICILLIN. CURRENT MEDICATIONS: Escitalopram 20 mg, tramadol 50 mg b.i.d., gabapentin 600 mg 2 tablets b.i.d., trazodone 100 mg at bedtime, montelukast 100 mg, hydroxyzine, lisinopril 10 mg, Lipitor 10 mg, Voltaren gel to the affected area 4 times daily, hydrocodone 5/325 one p.o. b.i.d. to t.i.d., Zofran, Zoloft, meloxicam. PAIN CLINIC ASSESSMENT AND PQRS: 1. The patient has some osteoarthritic changes involving her right shoulder. She has axhf-kp-nbrq involvement in her left knee. She has pain and discomfort in the right rotator cuff area. The patient is not being treated for rheumatoid arthritis. 2. Height 5 feet 6 inches, weight 211 pounds, BMI is 34. 3. Vital signs: Blood pressure 158/63, heart rate 85, respiratory rate 16, room air saturation 95, temperature 97.9. 4. Pain intensity 8/10. 5. Fall history: The patient has not fallen in the last 3 months. 6. Blood thinner. The patient is not on a blood thinning medication. 7. Hypertension. The patient is being treated for hypertension. 8. Opioids. The [facility]. 9. Risk assessment tool, low [place] [address] PAIN MANAGEMENT CONSULTATION Name: ROSANNA MONTGOMERY Janet Room: [facility]#: [id number] Admission: 08/04/20 Attend Phys: Eagle Collins MD Discharge: Date of : 56 Report #: [id number] 10. Functional assessment tool, reviewed. 11. Recreational drug use: The patient denies. 12. Tobacco: The patient has not smoked in the last 6 years. 13. Alcohol. The patient denies use of alcoholic beverages. PHYSICAL EXAMINATION: GENERAL: The patient is a well-developed, well-nourished white female. Appears her stated age. She is alert and oriented x 3. Her affect is appropriate. Speech is fluent. HEENT: Normocephalic, atraumatic. Extraocular eye muscles intact. Sclerae nonicteric. Mucous membranes are moist. The patient is wearing a facial covering. NECK: Without adenopathy or JVD. The patient has some pain and discomfort in her right shoulder. Has some limited motion in the right shoulder. HEART: Regular rate. ABDOMEN: Nontender. LUNGS: Generally clear to auscultation. MUSCULOSKELETAL: The patient without significant scoliosis, kyphosis or lordosis. The patient does complain of pain and discomfort in her left knee and has a wrap around her knee on the left side. Walks with an antalgic gait. IMPRESSION: 1. Chronic pain with a history of mononucleosis. 2. History of lethargy and myalgias for a number of months following mononucleosis. 3. The patient is status post COVID-19 infection. She was off from work for a period of time and is now getting her strength back. 4. Left knee chronic pain with cytn-ln-cfgj involvement. RECOMMENDATIONS: We discussed treatment options with the patient. At this juncture, we will continue with her medications. A prescription for hydrocodone 5/325 one p.o. t.i.d. has been provided. The patient will also continue with her use of meloxicam 15 mg. She will monitor her GI tract. She will also continue with gabapentin. She will continue with Voltaren gel to the affected areas. We would like to thank you for letting us participate in her care. She is aware that opioid medications can become problematic in some certain people and cause dependency. She has not shown any signs of dependency. The patient is wearing a brace on her left knee. <ELECTRONICALLY SIGNED> By: Eagle Collins MD 08/19/20 1545 D: 10/911 [id number]. MD DOC Rodriguez
== END ==
LOC: M.PC 10:30
PROVIDERS: ATTEND Anesthesiology Pain Medicine
DX: M25.562 Pain in left knee (principal); G89.29 Other chronic pain; U07.1 COVID-19

== ENCOUNTER → 2020-09-03 | Outpatient (CLI) | payer OTHER ==
--- NOTE | 2020-09-24 14:42 | PAINCON ---
[place] [address] [place] [address] PAIN MANAGEMENT CONSULTATION Name: ROSANNA MONTGOMERY Room: [facility]#: [id number] Admission: 09/03/20 Attend Phys: Eagle Collins MD Discharge: Date of : 56 Report #: [id number] THIS REPORT FOR: //name// cc: Gena Castillo NP, Elizabeth NP ~ CC: Gena Collins DATE OF SERVICE: 09/03/2020 CHIEF COMPLAINT: Left knee pain, shoulder pain and back pain. HISTORY: The patient is a 60-year-old female who has been followed in the Pain Clinic because of chronic pain. She has pain, which is quite problematic involving her left knee. States that she twisted her left knee last evening. She has noticed a worsening of pain and discomfort and rates it as a 9/10. Notes walking, sitting, standing, climbing stairs, and other activities of daily living are problematic. She does work and activity on her knee is quite problematic. She feels that her medications are helpful and would like to continue with their use. ALLERGIES: SULFA, AMOXICILLIN. CURRENT MEDICATIONS: Escitalopr?m 20 mg, tramadol 50 mg b.i.d., gabapentin 600 mg 2 tablets b.i.d., trazodone 100 mg at bedtime, montelukast 100 mg, hydroxyzine, lisinopril 10 mg, Lipitor 10 mg, Voltaren gel to the affected area 4 times daily, hydrocodone 5/325 one p.o. b.i.d., t.i.d., Zofran, Zoloft, and meloxicam. PAIN CLINIC ASSESSMENT/PQRS: 1. The patient has some osteoarthritic changes involving her right shoulder. She has cpgb-ux-ujdi involvement in her left knee. She has pain and discomfort in the right rotator cuff area. She is not being treated for rheumatoid arthritis. 2. Height is 5 feet 6 inches, weight 216 pounds, BMI is 35. 3. Vital signs: Blood pressure 134/68, pulse 105, respiratory rate 16, room air saturation is 96%. 4. Pain intensity is 9/10. 5. Fall history: The patient has not fallen in the last 3 months. 6. Blood thinner. The patient is not on a blood thinning medication. 7. Hypertension. The patient is being treated for hypertension. 8. Opioids. The [facility]. 9. Functional assessment tool reviewed. 10. Recreational drug use: The patient denies. 11. Tobacco: The patient has not smoked for the last [address] [place] [address] PAIN MANAGEMENT CONSULTATION Name: ROSANNA MONTGOMERY Room: [facility]#: [id number] Admission: 09/03/20 Attend Phys: Eagle Collins MD Discharge: Date of : 56 Report #: [id number] 12. Alcohol. The patient denies use of alcoholic beverages. PHYSICAL EXAMINATION: GENERAL: The patient is a well-developed, well-nourished white female. Appears her stated age. She is alert and oriented x 3. Her affect is appropriate. Speech is fluent. HEENT: Normocephalic, atraumatic. Extraocular eye muscles intact. The patient is wearing a facial covering. NECK: Without adenopathy or JVD. The patient has some pain and discomfort in the right shoulder. Has some limited range of motion in the right shoulder. HEART: Regular rate. ABDOMEN: Nontender. LUNGS: Generally clear to auscultation. MUSCULOSKELETAL: The patient is without significant scoliosis, kyphosis or lordosis. The patient does complain of some pain and discomfort in her left knee and has it wrapped on the left side. Walks with an antalgic gait. IMPRESSION: 1. Chronic pain with history of mononucleosis. 2. History of lethargy and myalgias for a number of months following mononucleosis. 3. The patient is status post closed COVID-19 infection. States that she has been off of work for a period of time, has now beginning to get her strength back. 4. Left knee pain with mrwz-qr-hiyb involvement. RECOMMENDATIONS: We discussed treatment options with the patient. At this juncture, we will provide the patient with hydrocodone 5 mg 1 p.o. t.i.d. She will also continue with meloxicam 15 mg daily. She will monitor her GI tract. She is aware that opioid medications can become less effective as time goes on because of development of tolerance. The patient will also continue with Voltaren gel to the affected area. She will continue with gabapentin. A script for these medications have all been written and sent to her pharmacy. She is aware that opioid medications can be problematic for some people. They can develop tolerance and they can become addicted. She has not shown any signs of addiction. We would like to thank you for letting us participate in her care. We hope she continues to improve. <ELECTRONICALLY SIGNED> By: Eagle Collins MD 09/24/20 [id number]. Olegario Collins MD /nt
== END ==
LOC: M.PC 12:20
PROVIDERS: ATTEND Anesthesiology Pain Medicine
DX: M54.5 Low back pain (principal); M25.511 Pain in right shoulder; G89.29 Other chronic pain

== ENCOUNTER → 2020-10-01 | Outpatient (CLI) | payer OTHER | LOC: M.PC 11:54 | PROVIDERS: ATTEND Anesthesiology Pain Medicine | DX: G89.29 Other chronic pain (principal); M25.562 Pain in left knee; Z86.19 Personal history of other infectious and parasitic diseases ==

== ENCOUNTER → 2020-10-27 | Outpatient (CLI) | payer OTHER | LOC: M.PC 11:10 | PROVIDERS: ATTEND Anesthesiology Pain Medicine | DX: M54.9 Dorsalgia, unspecified (principal); M25.562 Pain in left knee; G89.29 Other chronic pain; Z86.19 Personal history of other infectious and parasitic diseases; Z87.891 Personal history of nicotine dependence ==

== ENCOUNTER → 2020-11-24 | Outpatient (CLI) | payer OTHER | LOC: M.PC 11:30 | PROVIDERS: ATTEND Anesthesiology Pain Medicine | DX: M25.562 Pain in left knee (principal); G89.29 Other chronic pain; Z87.09 Personal history of other diseases of the respiratory system; Z88.8 Allergy status to other drugs, medicaments and biological substances; Z79.899 Other long term (current) drug therapy ==

== ENCOUNTER → 2020-12-31 | Outpatient (CLI) | payer OTHER | LOC: M.PC 12-24 12:30 | PROVIDERS: ATTEND Anesthesiology Pain Medicine | DX: M25.562 Pain in left knee (principal); M54.9 Dorsalgia, unspecified; G89.29 Other chronic pain; M86.9 Osteomyelitis, unspecified; Z88.8 Allergy status to other drugs, medicaments and biological substances; Z79.899 Other long term (current) drug therapy; Z87.39 Personal history of other diseases of the musculoskeletal system and connective tissue ==

== ENCOUNTER → 2021-01-28 | Outpatient (CLI) | payer OTHER ==
[~2021-01-28] MED LIST changes: +CELEXA 10 MG TA10 M1 PO
== END ==
LOC: M.PC 10:00
PROVIDERS: ATTEND Anesthesiology Pain Medicine
DX: M25.562 Pain in left knee (principal); M25.511 Pain in right shoulder; M54.9 Dorsalgia, unspecified; Z88.8 Allergy status to other drugs, medicaments and biological substances; Z79.899 Other long term (current) drug therapy

== ENCOUNTER → 2021-03-04 | Outpatient (CLI) | payer OTHER ==
[~2021-03-04] MED LIST changes: +.
== END ==
LOC: M.PC 02-25 10:00
PROVIDERS: ATTEND Anesthesiology Pain Medicine
DX: M25.562 Pain in left knee (principal); M54.9 Dorsalgia, unspecified; M25.511 Pain in right shoulder; G89.29 Other chronic pain

== ENCOUNTER → 2021-04-01 | Outpatient (CLI) | payer OTHER ==
[~2021-04-01] MED LIST changes: +VOLTAREN ARTHRI20 GM TRANSDERM
== END ==
LOC: M.PC 10:30
PROVIDERS: ATTEND Anesthesiology Pain Medicine
DX: G89.29 Other chronic pain (principal); M25.512 Pain in left shoulder; Z86.16 Personal history of COVID-19; M25.511 Pain in right shoulder; Z79.899 Other long term (current) drug therapy; Z79.891 Long term (current) use of opiate analgesic; Z87.891 Personal history of nicotine dependence; Z72.89 Other problems related to lifestyle; Z88.2 Allergy status to sulfonamides; Z88.1 Allergy status to other antibiotic agents; Z88.8 Allergy status to other drugs, medicaments and biological substances

== ENCOUNTER → 2021-06-01 | Outpatient (CLI) | payer OTHER | LOC: M.PC 05-27 10:30 | PROVIDERS: ATTEND Anesthesiology Pain Medicine | DX: G89.29 Other chronic pain (principal); M25.562 Pain in left knee; M25.511 Pain in right shoulder; Z86.16 Personal history of COVID-19; Z79.891 Long term (current) use of opiate analgesic; Z79.899 Other long term (current) drug therapy ==

== ENCOUNTER → 2021-07-08 | Outpatient (CLI) | payer OTHER ==
[2021-07-08 11:46] LABS: ABSOLUTE BASOPHILS 0.1 thou/uL (0.0-0.2); ABSOLUTE EOSINOPHILS 0.3 thou/uL (0.0-0.7); ABSOLUTE LYMPHOCYTES 2.4 thou/uL (0.8-5.3); ABSOLUTE MONOCYTES 0.7 thou/uL (0.0-1.2); ABSOLUTE NEUTROPHILS 5.1 thou/uL (1.6-8.1); HEMATOCRIT 37.2 % (37.0-47.0); HEMOGLOBIN 12.5 gm/dL (12.0-15.0); LYMPHOCYTES 28.3 %; MCH 29.6 pg (26.0-34.0); MCHC 33.7 g/dL (28.0-37.0); MCV 87.8 fL (80.0-100.0); MONOCYTES 8.2 %; MPV 6.8 fl. (7.2-11.1); NUCLEATED RBCS 0 /100WBC; PLATELET COUNT* 292 thou/uL (150-400); POLYS 59.5 %; RBC 4.24 mil/uL (4.20-5.00); RDW-CV 13.1 % (10.5-14.5); WBC 8.5 thou/uL (4.0-11.0)
[2021-07-08 12:01] LABS: ALBUMIN 4.3 g/dL (3.4-5.0); ALKALINE PHOSPHATASE 132 U/L (46-116); ANION GAP 11 mmol/L (7-16); BUN 18 mg/dL (7-18); CALCIUM 8.7 mg/dL (8.5-10.1); CHLORIDE 104 mmol/L (98-107); CHOLESTEROL 148 mg/dL (<200); CO2 26 mmol/L (21-32); GLUCOSE 85 mg/dL (70-99); HDL CHOLESTEROL 29 mg/dL (>40); LDL CHOLESTEROL 103 mg/dL (<100); POTASSIUM 4.2 mmol/L (3.5-5.1); SERUM ASSESSMENT Clear; SGOT 19 U/L (15-37); SGPT 20 U/L (30-65); SODIUM 141 mmol/L (136-145); TC:HDL 5.1 Ratio (Not establshd); TOTAL BILIRUBIN 0.4 mg/dL (<0.1-1.0); TOTAL PROTEIN 7.5 g/dL (6.4-8.2); TRIGLYCERIDE 81 mg/dL (<150); VLDL 16 mg/dL (<40)
== END ==
LOC: M.LAB 11:25
PROVIDERS: ATTEND Nurse Practitioner Family
DX: Z13.29 Encounter for screening for other suspected endocrine disorder (principal); I10 Essential (primary) hypertension; E55.9 Vitamin D deficiency, unspecified; E78.5 Hyperlipidemia, unspecified

== ENCOUNTER → 2021-07-27 | Outpatient (CLI) | payer OTHER | LOC: M.PC 10:30 | PROVIDERS: ATTEND Anesthesiology Pain Medicine | DX: G89.29 Other chronic pain (principal); M54.59 Other low back pain; M25.562 Pain in left knee; M25.511 Pain in right shoulder; I10 Essential (primary) hypertension; Z86.16 Personal history of COVID-19; Z88.1 Allergy status to other antibiotic agents; Z88.2 Allergy status to sulfonamides; Z88.8 Allergy status to other drugs, medicaments and biological substances; Z79.899 Other long term (current) drug therapy ==

== ENCOUNTER → 2021-09-21 | Outpatient (CLI) | payer OTHER | LOC: M.PC 10:40 | PROVIDERS: ATTEND Anesthesiology Pain Medicine | DX: G89.29 Other chronic pain (principal); M25.562 Pain in left knee; M79.10 Myalgia, unspecified site; B27.90 Infectious mononucleosis, unspecified without complication; B99.9 Unspecified infectious disease; U09.9 Post COVID-19 condition, unspecified; Z79.899 Other long term (current) drug therapy; Z87.891 Personal history of nicotine dependence ==